=== PATIENT | male | born 1950 | race Caucasian/White ===

== ENCOUNTER 2021-05-12 19:14 | Emergency (ER) | payer SELFPAY ==
[~2021-05-12] VITALS: Ht 180.3 cm; Wt 90.0 kg
[2021-05-12 22:39] LABS: CHLORIDE 103 mEq/L (98-107)
[2021-05-12 22:40] LABS: PROTHROMBIN TIME 10.7 sec (9.6-11.0)
[2021-05-12 22:42] LABS: BASOPHILS % 0.5 % (0.0-2.0); EOSINOPHILS % 0.1 % (0.0-5.0); HEMOGLOBIN. 17.7 g/dL (14.0-18.0); LYMPHOCYTES % 11.6 % (20.0-50.0); MEAN CORPUSCULAR HEMOGLOBIN 30.5 pg (28.0-32.0); MONOCYTES % 8.1 % (2.0-8.0); NEUTROPHILS % 79.7 % (40.0-76.0); RED BLOOD CELL COUNT 5.79 mill/uL (4.7-6.1); RED CELL DISTRIBUTION WIDTH 13.6 % (11.6-14.6)
[2021-05-12 22:57] LABS: MEAN PLATELET VOLUME 8.1 fl (7.4-10.4); PLATELET 210 x1000/uL (130-400)
[2021-05-12] MEDS ORDERED: POTASSIUM CHLORIDE 20MEQ TABLET SR PO ONE (23:00)
[2021-05-12 23:47] VITALS: BP 144/82
== END 2021-05-13 00:21 | disposition home or self-care (01) ==
LOC: ER 19:14 → CANBEDREQ 05-13 01:27
DX: R53.1 Weakness (principal); R42 Dizziness and giddiness; E11.9 Type 2 diabetes mellitus without complications; I10 Essential (primary) hypertension; E03.9 Hypothyroidism, unspecified
CPT/HCPCS: 36415; 71045; 80053; 83605; 84145; 84484; 85025; 93005; 99285

== ENCOUNTER 2024-01-22 11:05 | Emergency (ER) | payer BC ==
[~2024-01-22] VITALS: Ht 172.7 cm; Wt 100.0 kg
[2024-01-22 11:10] VITALS: O2SAT 100
[2024-01-22 11:25] LABS: EOSINOPHILS % 2.2 % (0.0-5.0); HEMOGLOBIN. 17.3 g/dL (14.0-18.0); LYMPHOCYTES % 24.5 % (20.0-50.0); MEAN CORPUSCULAR HEMOGLOBIN 30.4 pg (28.0-32.0); MEAN CORPUSCULAR HGB CONC 34.7 g/dL (31.0-37.0); MEAN CORPUSCULAR VOLUME 87.8 fL (80.0-94.0); MEAN PLATELET VOLUME 8.2 fl (7.4-10.4); MONOCYTES % 7.9 % (2.0-8.0); NEUTROPHILS % 64.4 % (40.0-76.0); PLATELET 292 x1000/uL (130-400); RED BLOOD CELL COUNT 5.69 mill/uL (4.7-6.1); RED CELL DISTRIBUTION WIDTH 13.9 % (11.6-14.6); WHITE BLOOD COUNT 8.7 x1000/uL (4.5-11.0)
[2024-01-22 11:35] LABS: CHLORIDE 105 mEq/L (98-107); POTASSIUM 4.2 mEq/L (3.5-5.1); SODIUM 138 mEq/L (136-145)
[2024-01-22 11:36] LABS: CARBON DIOXIDE 28 mEq/L (21-32)
[2024-01-22 11:41] LABS: CREATININE 0.8 mg/dL (0.6-1.3); GLUCOSE 166 mg/dL (70-105); UREA NITROGEN BLOOD 11 mg/dL (9-23)
[2024-01-22 11:43] LABS: ALANINE AMINOTRANSFERASE 10 IU/L (10-49); ALBUMIN 4.7 g/dL (3.2-4.8); ASPARTATE AMINOTRANSFERASE 18 IU/L (<34); BILIRUBIN DIRECT 0.2 mg/dL (<=3.0); BILIRUBIN TOTAL 0.7 mg/dL (0.1-1.0); PROTEIN TOTAL 7.7 g/dL (6.0-8.3)
[2024-01-22 13:42] VITALS: TEMP 98.2
[2024-01-22 13:52] LABS: TROPONIN I HIGH SENSITIVITY 9 ng/L (3.0-53)
[2024-01-22 14:07] VITALS: BP 170/86; PULSE 75; RESP 16
[2024-01-22] MEDS: ONDANSETRON HCL 4MG/2ML INJ IV ONE (14:07)
[2024-01-22] MEDS: KETOROLAC 30MG/ML VIAL IV STA (14:07)
[2024-01-22] MEDS: SODIUM CHLORIDE 0.9% 1,000 ML IV ONE (14:08)
[2024-01-22] MEDS ORDERED: FAMO-135 PO (15:56)
[2024-01-22] MEDS ORDERED: NA P230E RC (15:56)
== END 2024-01-22 16:22 | disposition home or self-care (01) ==
LOC: ER 11:05
DX: R10.13 Epigastric pain (principal); R10.33 Periumbilical pain; K59.00 Constipation, unspecified; E11.9 Type 2 diabetes mellitus without complications; I10 Essential (primary) hypertension
CPT/HCPCS: 99285; 74176; 96374; 71045; 96361; 96375; 80076; 80048; 83690; 85025; 84484; 36415; 93005; J1885; J2405; J7030

== ENCOUNTER 2024-03-12 15:51 | Emergency (ER) | payer BC, MEDICARE ==
[~2024-03-12] VITALS: Ht 172.7 cm; Wt 100.0 kg
[~2024-03-12 15:51] MED LIST: FAMO-135 PO; NA P230E RC
[2024-03-12 15:59] VITALS: O2SAT 97
[2024-03-12 17:51] VITALS: TEMP 98.6
[2024-03-12 18:09] LABS: BASOPHILS % 0.8 % (0.0-2.0); EOSINOPHILS % 2.4 % (0.0-5.0); HEMATOCRIT. 45.7 % (42.0-52.0); HEMOGLOBIN. 15.6 g/dL (14.0-18.0); MEAN CORPUSCULAR HEMOGLOBIN 30.1 pg (28.0-32.0); MEAN CORPUSCULAR HGB CONC 34.1 g/dL (31.0-37.0); MEAN CORPUSCULAR VOLUME 88.3 fL (80.0-94.0); MEAN PLATELET VOLUME 8.4 fl (7.4-10.4); MONOCYTES % 9.3 % (2.0-8.0); NEUTROPHILS % 66.5 % (40.0-76.0); PLATELET 264 x1000/uL (130-400); RED BLOOD CELL COUNT 5.18 mill/uL (4.7-6.1); RED CELL DISTRIBUTION WIDTH 13.7 % (11.6-14.6); WHITE BLOOD COUNT 8.3 x1000/uL (4.5-11.0)
[2024-03-12 18:18] LABS: CHLORIDE 105 mEq/L (98-107); SODIUM 135 mEq/L (136-145)
[2024-03-12 18:19] LABS: CARBON DIOXIDE 23 mEq/L (21-32)
[2024-03-12 18:24] LABS: CREATININE 0.8 mg/dL (0.6-1.3); GLUCOSE 231 mg/dL (70-105); UREA NITROGEN BLOOD 8 mg/dL (9-23)
[2024-03-12] MEDS ORDERED: IPRATROPIUM/ALBUTEROL 0.5-3(2.5)MG/3ML NEB HHN ONE (18:45)
[2024-03-12] MEDS: PREDNISONE 20MG TABLET PO ONE (19:02)
[2024-03-12] MEDS: HYDROCODONE/ACETAMINOPHEN 5/325MG TABLET PO ONE (19:03)
[2024-03-12] MEDS ORDERED: DEXT30SU17 MT (22:32)
[2024-03-12] MEDS ORDERED: ALBU90AE INH (22:32)
[2024-03-12] MEDS ORDERED: AZIT250T12 MT (22:32)
[2024-03-12] MEDS ORDERED: TOPUD MT (22:32)
[2024-03-12 22:50] VITALS: BP 158/85; PULSE 69; RESP 18
== END 2024-03-12 23:11 | disposition home or self-care (01) ==
LOC: ER 15:51
DX: R05.9 Cough, unspecified (principal); E11.9 Type 2 diabetes mellitus without complications; I10 Essential (primary) hypertension; Z79.899 Other long term (current) drug therapy
CPT/HCPCS: 99285; 71045; 80048; 82962; 83880; 85025; 36415; 93005; J7512

== ENCOUNTER 2024-03-24 11:48 | Emergency (ER) | payer MEDICARE ==
[~2024-03-24] VITALS: Ht 172.7 cm; Wt 99.3 kg
[~2024-03-24 11:48] MED LIST changes: +ALBU90AE INH; +AZIT250T12 MT; +DEXT30SU17 MT; +TOPUD MT
[2024-03-24 11:58] VITALS: O2SAT 96
[2024-03-24] MEDS ORDERED: FAMOTIDINE 20MG TABLET PO ONE (12:15)
[2024-03-24] MEDS ORDERED: DICYCLOMINE 10 MG/5 ML ORAL SYR PO STA (12:15)
[2024-03-24] MEDS ORDERED: KETOROLAC 30MG/ML VIAL IM STA (12:15)
[2024-03-24] MEDS ORDERED: ONDANSETRON 4MG ODT PO STA (12:15)
[2024-03-24] MEDS ORDERED: MAGNESIUM/ALUMINUM HYDROXIDE/SIMETHICONE 30ML UDC PO STA (12:15)
[2024-03-24 12:36] LABS: BASOPHILS % 2.1 % (0.0-2.0); EOSINOPHILS % 1.4 % (0.0-5.0); HEMATOCRIT. 48.4 % (42.0-52.0); HEMOGLOBIN. 16.7 g/dL (14.0-18.0); LYMPHOCYTES % 24.6 % (20.0-50.0); MEAN CORPUSCULAR HGB CONC 34.4 g/dL (31.0-37.0); MEAN CORPUSCULAR VOLUME 87.2 fL (80.0-94.0); MEAN PLATELET VOLUME 7.6 fl (7.4-10.4); MONOCYTES % 7.6 % (2.0-8.0); NEUTROPHILS % 64.3 % (40.0-76.0); PLATELET 320 x1000/uL (130-400); RED BLOOD CELL COUNT 5.55 mill/uL (4.7-6.1); RED CELL DISTRIBUTION WIDTH 13.6 % (11.6-14.6); WHITE BLOOD COUNT 7.3 x1000/uL (4.5-11.0)
[2024-03-24 12:46] LABS: CHLORIDE 103 mEq/L (98-107); POTASSIUM 4.1 mEq/L (3.5-5.1); SODIUM 138 mEq/L (136-145)
[2024-03-24 12:47] LABS: CALCIUM 9.6 mg/dL (8.7-10.4); CARBON DIOXIDE 27 mEq/L (21-32)
[2024-03-24 12:52] LABS: CREATININE 0.8 mg/dL (0.6-1.3); GLUCOSE 197 mg/dL (70-105)
[2024-03-24 12:53] LABS: UREA NITROGEN BLOOD 10 mg/dL (9-23)
[2024-03-24 12:54] LABS: ALANINE AMINOTRANSFERASE 23 IU/L (10-49); ALBUMIN 4.9 g/dL (3.2-4.8); ASPARTATE AMINOTRANSFERASE 19 IU/L (<34)
[2024-03-24 12:55] LABS: BILIRUBIN DIRECT 0.3 mg/dL (<=3.0); BILIRUBIN TOTAL 0.8 mg/dL (0.1-1.0); PROTEIN TOTAL 7.8 g/dL (6.0-8.3)
[2024-03-24 13:05] LABS: INR 0.9; PROTHROMBIN TIME 10.6 sec (9.6-11.0)
[2024-03-24] MEDS ORDERED: FAMO-135 PO (14:59)
[2024-03-24] MEDS: ONDANSETRON 4MG ODT PO NR (15:01)
[2024-03-24] MEDS: KETOROLAC 30MG/ML VIAL IM NR (15:01)
[2024-03-24] MEDS: MAGNESIUM/ALUMINUM HYDROXIDE/SIMETHICONE 30ML UDC PO NR (15:01)
[2024-03-24] MEDS: FAMOTIDINE 20MG TABLET PO NR (15:01)
[2024-03-24] MEDS: DICYCLOMINE HCL 10MG CAPSULE PO NR (15:06)
[2024-03-24 15:36] VITALS: BP 157/89; PULSE 66; RESP 18; TEMP 98.7
== END 2024-03-24 15:51 | disposition home or self-care (01) ==
LOC: ER 11:48
DX: K29.70 Gastritis, unspecified, without bleeding (principal); K76.0 Fatty (change of) liver, not elsewhere classified; E11.9 Type 2 diabetes mellitus without complications; I10 Essential (primary) hypertension; E03.9 Hypothyroidism, unspecified; Z98.890 Other specified postprocedural states
CPT/HCPCS: 99285; 74176; 76700; 80076; 80048; 83690; 85025; 85610; 36415; 96372; Q0162; J1885

== ENCOUNTER 2025-04-03 23:26 | Emergency (ER) | payer BC, MEDICARE ==
[~2025-04-03] VITALS: Ht 172.7 cm; Wt 50.0 kg
[2025-04-04 00:24] LABS: BASOPHILS % 1.1 % (0.0-2.0); EOSINOPHILS % 2.5 % (0.0-5.0); HEMATOCRIT. 46.4 % (42.0-52.0); HEMOGLOBIN. 16.1 g/dL (14.0-18.0); LYMPHOCYTES % 23.2 % (20.0-50.0); MEAN PLATELET VOLUME 8.1 fl (7.4-10.4); MONOCYTES % 8.0 % (2.0-8.0); NEUTROPHILS % 65.2 % (40.0-76.0); PLATELET 268 x1000/uL (130-400); RED BLOOD CELL COUNT 5.35 mill/uL (4.7-6.1); RED CELL DISTRIBUTION WIDTH 14.3 % (11.6-14.6)
[2025-04-04 00:41] LABS: CREATININE 1.0 mg/dL (0.6-1.3); UREA NITROGEN BLOOD 15 mg/dL (9-23)
[2025-04-04 00:42] LABS: TROPONIN I HIGH SENSITIVITY 7 ng/L (3.0-53)
[2025-04-04 00:43] LABS: ASPARTATE AMINOTRANSFERASE 13 IU/L (<34); BILIRUBIN DIRECT 0.3 mg/dL (<=3.0); BILIRUBIN TOTAL 0.9 mg/dL (0.1-1.0); PROTEIN TOTAL 7.7 g/dL (6.0-8.3)
[2025-04-04] MEDS: ACETAMINOPHEN 500MG TABLET PO ONE (03:58)
[2025-04-04] MEDS: ONDANSETRON HCL 4MG TABLET PO ONE (03:59)
[2025-04-04 04:07] LABS: CLARITY URINE CLEAR (CLEAR); COLOR URINE DARK YELLOW (YELLOW); GLUCOSE URINE 1+ (NEGATIVE); KETONES URINE TRACE (NEGATIVE); LEUKOCYTE ESTERASE URINE NEGATIVE (NEGATIVE); NITRITE URINE NEGATIVE (NEGATIVE); OCCULT BLOOD URINE NEGATIVE (NEGATIVE); PH URINE 5.0 (4.5-8.0); PROTEIN URINE TRACE (NEGATIVE); SPECIFIC GRAVITY URINE 1.018 (1.005-1.030); UROBILINOGEN URINE 1.0 E.U./dL (0.2-1.0)
[2025-04-04 04:45] VITALS: BP 147/74; PULSE 71; RESP 18; TEMP 36.8; O2SAT 97
[2025-04-04 04:48] LABS: RBC URINE 0-2 /hpf (0-2); SQUAMOUS EPITHELIAL CELL URINE FEW /lpf (RARE/1+); WBC URINE 0-2 /hpf (0-2)
[2025-04-04 04:50] LABS: BACTERIA URINE NONE SEEN
== END 2025-04-04 05:11 | disposition home or self-care (01) ==
LOC: ER 23:26
DX: K29.70 Gastritis, unspecified, without bleeding (principal); I10 Essential (primary) hypertension; E11.9 Type 2 diabetes mellitus without complications; E03.9 Hypothyroidism, unspecified; Z96.659 Presence of unspecified artificial knee joint; Z79.899 Other long term (current) drug therapy
CPT/HCPCS: 99285; 71045; 80076; 80048; 83690; 85025; 84484; 36415; 93005; 74176; 81003; Q0162